=== PATIENT | male | born 1980 | race Caucasian/White ===

== ENCOUNTER 2019-12-08 22:20 | Emergency (ER) | payer SELFPAY ==
[~2019-12-08] VITALS: Ht 30.5 cm; Wt 0.5 kg
[2019-12-08] MEDS ORDERED: CEFAZOLIN 1000MG PREMIX 50 ML IV NR (22:30)
[2019-12-08] MEDS ORDERED: MORPHINE SULFATE 4 MG/ML CPJ (NOT FOR IM USE) IV NR (22:30)
[2019-12-08] MEDS ORDERED: ONDANSETRON HCL 4MG/2ML INJ IV NR (22:30)
[2019-12-08] MEDS ORDERED: TETANUS, DIPHTHERIA, PERTUSSIS VAC/PF 0.5ML (>7YR OLD) IM ONE (22:30)
[2019-12-08 23:18] LABS: BASOPHILS % 0.9 % (0.0-2.0); EOSINOPHILS % 1.5 % (0.0-5.0); HEMATOCRIT. 42.1 % (42.0-52.0); HEMOGLOBIN. 15.1 g/dL (14.0-18.0); LYMPHOCYTES % 16.3 % (20.0-50.0); MEAN CORPUSCULAR HEMOGLOBIN 31.6 pg (28.0-32.0); MEAN CORPUSCULAR VOLUME 88.2 fL (80.0-94.0); MEAN PLATELET VOLUME 7.9 fl (7.4-10.4); MONOCYTES % 6.3 % (2.0-8.0); PLATELET 272 x1000/uL (130-400); RED BLOOD CELL COUNT 4.77 mill/uL (4.7-6.1); RED CELL DISTRIBUTION WIDTH 13.4 % (11.6-14.6)
[2019-12-08 23:21] LABS: CHLORIDE 108 mEq/L (98-107)
[2019-12-08 23:25] LABS: PARTIAL THROMBOPLASTIN TIME 25.9 sec (23.4-31.0); PROTHROMBIN TIME 10.3 sec (9.6-11.0)
[2019-12-09] MEDS ORDERED: LISINOPRIL 20MG TABLET PO SCH (00:45)
[2019-12-09] MEDS ORDERED: MORPHINE SULFATE 4 MG/ML CPJ (NOT FOR IM USE) IV ONE (01:15)
[2019-12-09 01:54] VITALS: BP 175/123
[2019-12-09] MEDS ORDERED: IOHEXOL-300 100 ML BOTTLE ONE (02:27)
== END 2019-12-09 01:55 | disposition home or self-care (01) ==
LOC: ER 22:20
DX: S41.011A Laceration without foreign body of right shoulder, initial encounter (principal); I10 Essential (primary) hypertension; R61 Generalized hyperhidrosis; W33.01XA Accidental discharge of shotgun, initial encounter; Y93.89 Activity, other specified; Y92.89 Other specified places as the place of occurrence of the external cause; Y99.8 Other external cause status
CPT/HCPCS: 12004; 36415; 71045; 71260; 72170; 80053; 83690; 85025; 85610; 85730; 86850; 86900; 86901; 90471; 90715; 93005; 96365; 96375; 96376; 99285; J0690; J2270; J2405; Q9967